=== PATIENT | female | born 1990 | race Caucasian/White ===

== ENCOUNTER 2018-06-05 05:11 | Emergency (ER) | payer MEDICAID ==
[~2018-06-05] VITALS: Ht 157.5 cm; Wt 69.0 kg
[2018-06-05] MEDS ORDERED: IBUPROFEN 600MG TABLET PO STA (06:44)
[2018-06-05 07:23] LABS: CLARITY URINE CLOUDY (CLEAR); COLOR URINE YELLOW (YELLOW); KETONES URINE TRACE (NEGATIVE); LEUKOCYTE ESTERASE URINE NEGATIVE (NEGATIVE); NITRITE URINE NEGATIVE (NEGATIVE); OCCULT BLOOD URINE NEGATIVE (NEGATIVE); PH URINE 8.5 (4.5-8.0); PROTEIN URINE NEGATIVE (NEGATIVE)
[2018-06-05 07:51] VITALS: BP 115/69
== END 2018-06-05 07:51 | disposition home or self-care (01) ==
LOC: MERGE 05:11 → ER 05:11
DX: R51 Headache (principal); R10.84 Generalized abdominal pain; R03.0 Elevated blood-pressure reading, without diagnosis of hypertension
CPT/HCPCS: 81025; 99283

== ENCOUNTER 2018-06-06 14:25 | Emergency (ER) | payer MEDICAID, OTHER ==
[~2018-06-06] VITALS: Ht 162.6 cm; Wt 81.1 kg
[2018-06-06 14:33] VITALS: BP 120/86
== END 2018-06-06 17:32 | disposition left against medical advice (07) ==
LOC: ER 14:25
DX: R68.89 Other general symptoms and signs (principal); Z53.21 Procedure and treatment not carried out due to patient leaving prior to being seen by health care provider